=== PATIENT | male | born 1950 | race Caucasian/White ===

== ENCOUNTER 2018-07-03 02:04 | Emergency (ER) | payer MEDICARE, OTHER ==
--- NOTE | 2018-07-03 02:33 | ED ---
Male Urogenital HPI - General Chief complaint: Urogenital Stated complaint: Urine Retention Time Seen by Provider: 07/03/18 02:24 Source: patient Mode of arrival: ambulatory Limitations: no limitations - History of Present Illness Initial comments: 67-year-old male patient presents to the emergency department today for complaints of urinary retention. Patient states he has been having issues with urinary retention since having open heart surgery at the end of April. Patient states that prior to today he has had 3 indwelling Hendrickson catheters placements subsequently removed. Patient states the last one was removed on Friday and he seemed to be urinating okay since then. Patient states that he has not had a very good stream since removal. States that his urine output started to slow today and this evening developed a lot of pressure to the suprapubic region. States he is having some dysuria. He denies any hematuria. Denies any fever or chills. Patient states that Dr. Samson has told him that he has a moderately enlarged prostate. Patient denies any recent rash, shortness breath, chest pain, nausea, vomiting, diarrhea, constipation, back pain, flank pain, numbness, tingling, dizziness, weakness, headache, visual changes, or any other complaints. - Related Data Previous Rx's Medication Instructions Recorded Ciprofloxacin HCl [Cipro] 500 mg PO BID 7 Days #14 tab 07/03/18 Allergies Allergy/AdvReac Type Severity Reaction Status Date / Time Sulfa (Sulfonamide Allergy Unknown Verified 07/03/18 02:16 Antibiotics) Review of Systems ROS Statement: Those systems with pertinent positive or pertinent negative responses have been documented in the HPI. ROS Other: All systems not noted in ROS Statement are negative. Past Medical History Past Medical History: Diabetes Mellitus History of Any Multi-Drug Resistant Organisms: None Reported Past Surgical History: Cardiac Valve Replacement Additional Past Surgical History / Comment(s): Aortic root and valve replacement. Past Psychological History: No Psychological Hx Reported Smoking Status: Former smoker Past Alcohol Use History: Rare Past Drug Use History: None Reported General Exam Limitations: no limitations General appearance: alert, in no apparent distress, other (This is a well- developed, well-nourished elderly male patient in no acute distress. Vital signs upon presentation are temperature 99.2F, pulse 64, respirations 18, blood pressure 130/79, pulse ox 96% on room air.) Eye exam: Present: normal appearance, PERRL, EOMI. Absent: scleral icterus, conjunctival injection, periorbital swelling ENT exam: Present: normal exam, normal oropharynx, mucous membranes moist Respiratory exam: Present: normal lung sounds bilaterally. Absent: respiratory distress, wheezes, rales, rhonchi, stridor Cardiovascular Exam: Present: regular rate, normal rhythm, normal heart sounds. Absent: systolic murmur, diastolic murmur, rubs, gallop, clicks GI/Abdominal exam: Present: soft, tenderness (Suprapubic), normal bowel sounds. Absent: distended, guarding, rebound, rigid Neurological exam: Present: alert, oriented X3, CN II-XII intact Psychiatric exam: Present: normal affect, normal mood Skin exam: Present: warm, dry, intact, normal color. Absent: rash Course Vital Signs 07/03/18 07/03/18 02:11 03:41 Temperature 99.2 F 98.9 F Pulse Rate 64 60 Respiratory 18 16 Rate Blood Pressure 130/79 133/70 O2 Sat by Pulse 96 97 Oximetry Medical Decision Making - Medical Decision Making 67-year-old male patient presented to the emergency department today for evaluation of urinary retention and dysuria. Physical examination did reveal suprapubic discomfort upon palpation. Hendrickson catheter was inserted and patient did have output of just over 1000 mL of urine. Urinalysis was obtained and did show trace protein with 3+ glucose, moderate blood, large leukocyte esterase, 22 red blood cells, 98 white blood cells, occasional white blood cell clumps, rare bacteria, and rare mucous. Patient did have positive nitrite. Given patient's 3+ glucose in the urine did have nursing perform blood glucose reading which was 142, patient take his Lantus this evening. Did discuss findings results with the patient. He has been taking Cipro since Friday, 250 mg twice a day, he has 1 day left. Given patient's urine findings and possibility of prostatitis we will increase the Cipro to 500 mg twice a daily and given for the next 7 days. This has been cultured. We'll send him to see Dr. Samson. Return parameters discussed in detail. He verbalizes understanding and agrees with this plan. - Lab Data Lab Results 07/03/18 07/03/18 Range/Units 02:34 03:01 POC Glucose (mg/dL) 142 H (75-99) mg/dL POC Glu [employer] ID Suhail, Myla Urine Color Yellow Urine Appearance Cloudy (Clear) Urine pH 6.0 (5.0-8.0) Ur Specific [place] 1.010 (1.001-1.035) Urine Protein Trace H (Negative) Urine Glucose (UA) 3+ H (Negative) Urine Ketones Negative (Negative) Urine Blood Moderate H (Negative) Urine Nitrite Positive (Negative) Urine Bilirubin Negative (Negative) Urine Urobilinogen <2.0 (<2.0) mg/dL Ur Leukocyte Esterase Large H (Negative) Urine RBC 22 H (0-5) /hpf Urine WBC 98 H (0-5) /hpf Urine WBC Clumps Occasional H (None) /hpf Urine Bacteria Rare H (None) /hpf Urine Mucus Rare H (None) /hpf Disposition Clinical Impression: Urinary retention, Urinary tract infection Disposition: HOME SELF-CARE Condition: Good Instructions: Urinary Retention in Men (ED), Urinary Tract Infection in Men (ED ), Hendrickson Catheter Placement and Care (ED) Additional Instructions: Increase fluids. Follow-up with urologist for further evaluation since possible. Complete antibiotic prescription and full. Return here immediately for any new, worsening, or concerning symptoms. Prescriptions: Ciprofloxacin HCl [Cipro] 500 mg PO BID 7 Days #14 tab Is patient prescribed a controlled substance at d/c from ED?: No Referrals: Liz Vizcaino MD [Primary Care Provider] - 1-2 days Time of Disposition: 03:12
[2018-07-03 02:52] LABS: Appearance,Urine Cloudy (Clear); Bacteria,Urine Rare /hpf; Bilirubin,Urine Negative (Negative); Blood,Urine Moderate (Negative); Color,Urine Yellow; Glucose,Urine (UA) 3+ (Negative); Ketones,Urine Negative (Negative); Leukocyte Esterase,Urine Large (Negative); Mucus,Urine Rare /hpf; Nitrite,Urine Positive (Negative); Protein,Urine Trace (Negative); RBC,Urine 22 /hpf (0-5); Urobilinogen,Urine <2.0 mg/dL (<2.0); WBC,Urine 98 /hpf (0-5)
[2018-07-03 03:05] LABS: Glucose,Whole Blood 142 mg/dL (75-99)
[2018-07-03] MEDS ORDERED: CIPROFLOXACIN HCL 500 MG TAB PO STA (03:10)
[2018-07-03 03:42] VITALS: BP 133/70; PULSE 60; RESP 16; TEMP 98.9
== END 2018-07-03 03:42 | disposition home or self-care (01) ==
LOC: EC 02:04
DX: N39.0 Urinary tract infection, site not specified (principal); Z87.891 Personal history of nicotine dependence; Z95.2 Presence of prosthetic heart valve; Z88.2 Allergy status to sulfonamides
CPT/HCPCS: 36415; 51702; 81001; 87077; 87086; 87186; 99283

== ENCOUNTER → 2018-07-10 | Outpatient (CLI) | payer MEDICARE, OTHER ==
[2018-07-10 12:52] LABS: HCT 35.2 % (39.0-53.0); Hypochromasia Slight; MCH 32.1 pg (25.0-35.0); MCHC 34.1 g/dL (31.0-37.0); MCV 94.2 fL (80.0-100.0); Mean Platelet Volume 7.5; Platelet Count 320 k/uL (150-450); RBC 3.74 m/uL (4.30-5.90); RDW 13.7 % (11.5-15.5); WBC 7.3 k/uL (3.8-10.6)
[2018-07-10 13:20] LABS: Potassium 5.1 mmol/L (3.5-5.1)
== END ==
LOC: LABPAT 11:14
PROVIDERS: ATTEND Urology
DX: Z01.818 Encounter for other preprocedural examination (principal); I10 Essential (primary) hypertension; N40.1 Benign prostatic hyperplasia with lower urinary tract symptoms; R33.9 Retention of urine, unspecified; Z79.899 Other long term (current) drug therapy; Z01.812 Encounter for preprocedural laboratory examination
CPT/HCPCS: 80048; 85027; 93005

== ENCOUNTER 2018-07-16 07:20 | Day surgery (SDC) | payer MEDICARE, OTHER ==
[2018-07-13 10:58] VITALS: BMI 28.7
--- NOTE | 2018-07-16 06:34 | P.GSHP ---
History of Present Illness H&P Date: 07/15/18 Chief Complaint: Urinary retention The patient is a 67-year-old male with known BPH. When seen in October 2017, he reported mild obstructive voiding symptoms. His postvoid residual at that time was 80 mL. Tamsulosin was prescribed. He underwent a CABG on 05/22/2018. He developed postoperative urinary retention and has failed voiding trials. A cystometrogram showed normal bladder tone, and he was able to void following that. However, he subsequently developed recurrent urinary retention, requiring replacement of his Hendrickson catheter. Alternative treatment options were reviewed, including increased tamsulosin dosage, combination medical therapy, and TURP. He has elected to undergo the latter and comes for this reason. A recent urine culture has shown Pseudomonas aeruginosa, resistant to quinolones, and he is currently being treated with Rocephin 2 g IVPB daily. - Constitutional Constitutional: Denies chills, Denies fever Past Medical History Past Medical History: Coronary Artery Disease (CAD), Diabetes Mellitus, Hypertension, Prostate Disorder Additional Past Medical History / Comment(s): Enl. Prostate; Bladder infection History of Any Multi-Drug Resistant Organisms: None Reported Past Surgical History: Cardiac Valve Replacement Additional Past Surgical History / Comment(s): Aortic root and valve replacement. Past Anesthesia/Blood Transfusion Reactions: No Reported Reaction Smoking Status: Former smoker - Past Family History Mother Family Medical History: No Reported History Medications and Allergies Home Medications Medication Instructions Recorded Confirmed Type ALPRAZolam [Xanax] 0.25 mg PO HS PRN 07/13/18 07/13/18 History Aspirin [Adult Low Dose Aspirin EC] 81 mg PO DAILY 07/13/18 07/13/18 History Calcium Polycarbophil [Fibercon] 625 mg PO DAILY 07/13/18 07/13/18 History Cranberry Fruit Concentrate 450 mg PO DAILY 07/13/18 07/13/18 History [Cranberry] Cyanocobalamin (Vitamin B-12) 1,000 mcg PO DAILY 07/13/18 07/13/18 History [Vitamin B-12] Flaxseed Oil [[place]-3 Flaxseed Oil] 1,000 mg PO DAILY 07/13/18 07/13/18 History Metoprolol Tartrate [Lopressor] 50 mg PO BID 07/13/18 07/13/18 History Multivitamins, Thera [Multivitamin 1 tab PO DAILY 07/13/18 07/13/18 History (formulary)] Niacin 500 mg PO DAILY 07/13/18 07/13/18 History Pioglitazone [Actos] 30 mg PO DAILY 07/13/18 07/13/18 History Tamsulosin [Flomax] 0.4 mg PO DAILY 07/13/18 07/13/18 History cefTRIAXone [Rocephin] 2,000 mg IVPB Q24HR 07/13/18 07/13/18 History glipiZIDE [Glucotrol] 10 mg PO AC-BID 07/13/18 07/13/18 History metFORMIN HCL [Glucophage] 500 mg PO BID 07/13/18 07/13/18 History Allergies Allergy/AdvReac Type Severity Reaction Status Date / Time Sulfa (Sulfonamide Allergy Unknown Verified 07/13/18 10:32 Antibiotics) Surgical - Exam - General well developed, well nourished, no distress - Respiratory normal respiratory effort - Abdomen Abdomen: soft, non tender, no guarding, no rigid, no rebound - Genitourinary normal penis with no external lesions, testicles non-tender - Rectum Rectum: normal sphincter tone, no masses, other (Prostate mildly enlarged and smooth) - Psychiatric oriented to time, oriented to person, oriented to place, speech is normal, memory intact Assessment and Plan (1) Urinary retention due to benign prostatic hyperplasia Status: Acute Code(s): N40.1 - BENIGN PROSTATIC HYPERPLASIA WITH LOWER URINARY TRACT SYMP; R33.8 - OTHER RETENTION OF URINE SNOMED Code(s): 602849452 Plan: Cystoscopy, bipolar transurethral resection of prostate (TURP). The procedure has been reviewed in detail with the patient. Potential risks were also reviewed, which include anesthesia, bleeding, infection, vesical neck contracture, urethral stricture, urinary incontinence, and persistent urinary retention.
[~2018-07-16 07:20] MED LIST: DEXAMETHASONE SOD PHOSPHATE 10 MG/ML 1 ML VIAL IV ONE; LACTATED RINGERS 1,000 ML IV SCH; LIDOCAINE 1% 20 ML VIAL (10MG/ML) FOR IV START INTRADERMA PRN; MIDAZOLAM 2 MG/2 ML VIAL IV PRN; ONDANSETRON 4 MG/2 ML VIAL IVP ONE; ceFAZolin IN SWFI 2 GM/20 ML SYRINGE IVP ONE; cefTRIAXone 2,000 MG in SODIUM CHLORIDE 0.9% 100 ML IVPB ONE; fentaNYL (PF) 50 MCG/ML 2 ML AMP IV PRN
[2018-07-16 08:13] LABS: Glucose,Whole Blood 188 mg/dL (75-99)
[2018-07-16] MEDS ORDERED: LIDOCAINE 1% INJ 10MG/ML (20 ML MDV) ONE (10:01)
[2018-07-16] MEDS ORDERED: FUROSEMIDE 10 MG/ML 2 ML VIAL ONE (10:01)
[2018-07-16] MEDS ORDERED: PROPOFOL 10 MG/ML 20 ML VIAL IV ONE (10:01)
[2018-07-16] MEDS ORDERED: SUCCINYLCHOLINE CHLORIDE 100 MG/5 ML SYR IV ONE (10:01)
[2018-07-16] MEDS ORDERED: ePHEDrine SULFATE/0.9% NACL/PF 50 MG/5 ML SYRINGE IV ONE (10:01)
[2018-07-16] MEDS ORDERED: NEOSTIGMINE 1 MG/ML 10 ML VIAL ONE (10:01)
[2018-07-16] MEDS ORDERED: fentaNYL (PF) 50 MCG/ML 2 ML AMP ONE (10:01)
[2018-07-16] MEDS ORDERED: GLYCOPYRROLATE 0.2 MG/ML 2 ML VIAL ONE (10:01)
[2018-07-16] MEDS ORDERED: PHENYLEPHRINE-0.9% NACL SYG 1 MG/10 ML SYRINGE ONE (10:01)
[2018-07-16] MEDS ORDERED: ROCURONIUM BROMIDE 10 MG/ML 10 ML VIAL IV ONE (10:01)
[2018-07-16] MEDS ORDERED: MIDAZOLAM 2 MG/2 ML VIAL ONE (10:01)
--- NOTE | 2018-07-16 12:20 | P.OP ---
Date of Procedure: 07/16/18 Preoperative Diagnosis: Urinary retention secondary to BPH Postoperative Diagnosis: Same Procedure(s) Performed: Cystoscopy, bipolar transurethral resection of prostate (TURP) Anesthesia: GETA Estimated Blood Loss (ml): 100 IV fluids (ml): 900 Pathology: other (Prostate chips) Condition: stable Disposition: PACU Indications for Procedure: The patient is a 67-year-old male with known BPH. When seen in October 2017, he reported mild obstructive voiding symptoms. His postvoid residual at that time was 80 mL. Tamsulosin was prescribed. He underwent a CABG on 05/22/2018. He developed postoperative urinary retention and has failed voiding trials. A cystometrogram showed normal bladder tone, and he was able to void following that. However, he subsequently developed recurrent urinary retention, requiring replacement of his Hendrickson catheter. Alternative treatment options were reviewed, including increased tamsulosin dosage, combination medical therapy, and TURP. He has elected to undergo the latter and comes for this reason. A recent urine culture has shown Pseudomonas aeruginosa, resistant to quinolones, and he is currently being treated with Rocephin 2 g IVPB daily. Operative Findings: Trilobar BPH Description of Procedure: The patient was taken in the operating room and placed in the dorsolithotomy position. The external genitalia was prepped and draped sterilely. The 25- [place] ACMI resectoscope sheath was introduced into the bladder. The bladder was inspected. Both ureteral orifices were of normal anatomic location and configuration, and clear urine effluxed from both. No tumors or foreign bodies were seen. Examination of the prostate revealed complete obstruction with a trilobar configuration. It was noted that the prosthetic apex extended well beyond the verumontanum. Using the bipolar cutting loop, the lateral lobes were resected down to the surgical capsule. The floor of the prostate was then resected, proximal to the verumontanum. Lastly, any remaining anterior tissue was resected. The remaining apical tissue was then carefully resected, though resection of the apical tissue was incomplete due to the fact that it extended so far beyond the verumontanum and I wanted to minimize risk to the external urinary sphincter.. The resection was carried down to the surgical capsule in all 4 quadrants. The prostatic fossa was then carefully examined, and any areas of bleeding were controlled with electrocautery. Excellent hemostasis was attained. The resectoscope was withdrawn into the bulbous urethra. The external urinary sphincter remained intact. The prostatic fossa was open. The TheTake evacuator was used to remove all prostate chips from the bladder. These were saved and sent for pathologic examination. The resectoscope was removed, and an 18 [place] Hendrickson catheter was placed. The return was essentially clear. The patient tolerated the procedure well was taken to the recovery room in stable condition.
[2018-07-16 12:37] VITALS: TEMP 97
[2018-07-16] MEDS ORDERED: HYDROmorphone 1 MG/ML 1 ML SYRINGE IVP ONE ×4 (12:43→13:29)
[2018-07-16] MEDS ORDERED: INSULIN ASPART 100 UNIT/ML 1 ML 10 ML VIAL SQ ONE (13:10)
[2018-07-16 13:22] LABS: Glucose,Whole Blood 241 mg/dL (75-99)
[2018-07-16] MEDS ORDERED: ONDANSETRON 4 MG/2 ML VIAL IVP ONE (13:35)
[2018-07-16 15:58] VITALS: BP 122/70; PULSE 62; RESP 16
== END 2018-07-16 15:55 | disposition home or self-care (01) ==
LOC: OR 07:20
PROVIDERS: ATTEND Urology
DX: N40.1 Benign prostatic hyperplasia with lower urinary tract symptoms (principal); R33.8 Other retention of urine; N39.0 Urinary tract infection, site not specified; B96.5 Pseudomonas (aeruginosa) (mallei) (pseudomallei) as the cause of diseases classified elsewhere; Z16.31 Resistance to antiparasitic drug(s); I25.10 Atherosclerotic heart disease of native coronary artery without angina pectoris; E11.9 Type 2 diabetes mellitus without complications; I10 Essential (primary) hypertension; N42.9 Disorder of prostate, unspecified; F41.9 Anxiety disorder, unspecified; Z95.1 Presence of aortocoronary bypass graft; Z95.2 Presence of prosthetic heart valve; Z79.84 Long term (current) use of oral hypoglycemic drugs; Z79.82 Long term (current) use of aspirin; Z79.899 Other long term (current) drug therapy; Z88.2 Allergy status to sulfonamides; Z87.891 Personal history of nicotine dependence
CPT/HCPCS: 88305; 52601; J2250; J1100; J1940; J2710; J2405; J0696; J2001; J3010; J1170; J2370; J0330; J2704

== ENCOUNTER 2020-03-23 06:36 | Observation (INO) | payer MEDICARE, OTHER ==
[2020-03-23] MEDS ORDERED: KETOROLAC 30 MG/ML 1 ML VIAL IVP STA (07:06)
--- NOTE | 2020-03-23 07:08 | ED ---
Neck Injury/Pain HPI - General Chief Complaint: Neck Pain/Injury Stated Complaint: L arm numbness Time Seen by Provider: 03/23/20 06:57 Source: patient, family, RN notes reviewed Mode of arrival: ambulatory Limitations: no limitations - History of Present Illness Initial Comments: this is a 69-year-old male presents emergency Department with chief complaint of left sided neck, shoulder pain. Patient states that it started around 2 AM in which the pain woke him up. Patient states that he has some numbness and tingling in his left arm. He felt that it was just related to muscle injury so he took an Aleve at that time in a hot shower. Patient states that did not change and he still felt uncomfortable and became concerned. Patient states that he had open heart surgery for aortic valve replacement in 2018. Patient recent echo which showed everything functioning well. Patient states does have a history of diabetes. He denies any focal weakness denies any nausea, vomiting, chest pain or shortness of breath no current headache. - Related Data Home Medications Medication Instructions Recorded Confirmed ALPRAZolam [Xanax] 0.25 mg PO HS PRN 07/13/18 07/16/18 Aspirin [Adult Low Dose Aspirin EC] 81 mg PO DAILY 07/13/18 07/16/18 Calcium Polycarbophil [Fibercon] 625 mg PO DAILY 07/13/18 07/16/18 Cranberry Fruit Concentrate 450 mg PO DAILY 07/13/18 07/16/18 [Cranberry] Cyanocobalamin (Vitamin B-12) 1,000 mcg PO DAILY 07/13/18 07/16/18 [Vitamin B-12] Flaxseed Oil [[place]-3 Flaxseed Oil] 1,000 mg PO DAILY 07/13/18 07/16/18 Metoprolol Tartrate [Lopressor] 50 mg PO BID 07/13/18 07/16/18 Multivitamins, Thera [Multivitamin 1 tab PO DAILY 07/13/18 07/16/18 (formulary)] Niacin 500 mg PO DAILY 07/13/18 07/16/18 Pioglitazone [Actos] 30 mg PO DAILY 07/13/18 07/16/18 Tamsulosin [Flomax] 0.4 mg PO DAILY 07/13/18 07/16/18 cefTRIAXone [Rocephin] 2,000 mg IVPB Q24HR 07/13/18 07/16/18 glipiZIDE [Glucotrol] 10 mg PO AC-BID 07/13/18 07/16/18 metFORMIN HCL [Glucophage] 500 mg PO BID 07/13/18 07/16/18 Previous Rx's Medication Instructions Recorded Hydrocodone/Acetaminophen [[place] 1 - 2 each PO Q4HR PRN #6 tab 07/16/18 5-325] Allergies Allergy/AdvReac Type Severity Reaction Status Date / Time Sulfa (Sulfonamide Allergy Unknown Verified 07/16/18 07:54 Antibiotics) Review of Systems ROS Statement: Those systems with pertinent positive or pertinent negative responses have been documented in the HPI. ROS Other: All systems not noted in ROS Statement are negative. Past Medical History Past Medical History: Diabetes Mellitus History of Any Multi-Drug Resistant Organisms: None Reported Past Surgical History: Cardiac Valve Replacement Additional Past Surgical History / Comment(s): Aortic root and valve replacement 2018. urethral surgery Past Psychological History: No Psychological Hx Reported Smoking Status: Former smoker Past Alcohol Use History: None Reported, Occasional Past Drug Use History: None Reported General Exam Limitations: no limitations General appearance: alert, in no apparent distress Head exam: Present: atraumatic, normocephalic, normal inspection Eye exam: Present: normal appearance, PERRL, EOMI. Absent: scleral icterus, conjunctival injection, periorbital swelling ENT exam: Present: normal exam, normal oropharynx, mucous membranes moist, TM's normal bilaterally, normal external ear exam Neck exam: Present: normal inspection, tenderness (Mild tenderness with palpation over the left trapezius), full ROM. Absent: meningismus, lymphadenopathy Respiratory exam: Present: normal lung sounds bilaterally. Absent: respiratory distress, wheezes, rales, rhonchi, stridor Cardiovascular Exam: Present: regular rate, normal rhythm, normal heart sounds. Absent: systolic murmur, diastolic murmur, rubs, gallop, clicks GI/Abdominal exam: Present: soft, normal bowel sounds. Absent: distended, tenderness, guarding, rebound, rigid Neurological exam: Present: alert, oriented X3, CN II-XII intact, reflexes normal, other (Finger to nose intact bilaterally without over shooting). Absent: motor sensory deficit Expanded Patient oriented to: Present: person, place, time Speech: Present: fluid speech Cranial nerves: EOM's Intact: Normal, Gag Reflex: Normal, Tongue Deviation: Normal, Facial Sensation: Normal, Facial Palsy with Forehead Movement: Normal, Facial Palsy without Forehead Movement: Normal Cerebellar function: Finger to Nose: Normal, Heel to [place]: Normal Motor strength exam: RUE: 5, LUE: 5, RLE: 5, LLE: 5 Eye Response: (4) open spontaneously Motor Response: (6) obeys commands Verbal Response: (5) oriented [place] Total: 15 Skin exam: Present: warm, dry, intact, normal color. Absent: rash Course Vital Signs 03/23/20 03/23/20 06:40 07:43 Temperature 97.6 F Pulse Rate 54 L 55 L Respiratory 18 16 Rate Blood Pressure 138/78 129/78 O2 Sat by Pulse 97 95 Oximetry Medical Decision Making - Medical Decision Making 69-year-old male presented for left shoulder, left arm pain with associated paresthesias. Symptoms are not significantly reproducible at this time patient does have a history of old CVA which was noted on CT. Patient does have some degenerative changes of the cervical spine may be leading to his symptoms though they're still concern for mild CVA. Patient's NIH is low in which a code stroke was not called at this time. Patient symptoms are not progressing. Patient did take aspirin prior arrival. Patient was not given additional aspirin. Patient will be admitted to Dr. Keita with neurology evaluation. Patient's EKG does not reveal any acute findings. Patient's labs are unremarkable. - Lab Data Result diagrams: 03/23/20 07:08 03/23/20 07:08 Lab Results 03/23/20 03/23/20 03/23/20 Range/Units 07:08 07:08 07:08 WBC 6.0 (3.8-10.6) k/uL RBC 4.59 (4.30-5.90) m/uL Hgb 15.7 (13.0-17.5) gm/dL Hct 44.8 (39.0-53.0) % MCV 97.8 (80.0-100.0) fL MCH 34.2 (25.0-35.0) pg MCHC 34.9 (31.0-37.0) g/dL RDW 11.6 (11.5-15.5) % Plt Count 222 (150-450) k/uL Neutrophils % 55 % Lymphocytes % 29 % Monocytes % 8 % Eosinophils % 5 % Basophils % 1 % Neutrophils # 3.3 (1.3-7.7) k/uL Lymphocytes # 1.8 (1.0-4.8) k/uL Monocytes # 0.5 (0-1.0) k/uL Eosinophils # 0.3 (0-0.7) k/uL Basophils # 0.0 (0-0.2) k/uL Sodium 136 L (137-145) mmol/L Potassium 4.8 (3.5-5.1) mmol/L Chloride 107 (98-107) mmol/L Carbon Dioxide 20 L (22-30) mmol/L Anion Gap 9 mmol/L BUN 23 H (9-20) mg/dL Creatinine 0.94 (0.66-1.25) mg/dL Est GFR (CKD-EPI)AfAm >90 (>60 ml/min/1.73 sqM) Est GFR (CKD-EPI)NonAf 82 (>60 ml/min/1.73 sqM) Glucose 187 H (74-99) mg/dL Calcium 9.6 (8.4-10.2) mg/dL Magnesium 2.0 (1.6-2.3) mg/dL Total Bilirubin 1.3 (0.2-1.3) mg/dL AST 26 (17-59) U/L ALT 18 (4-49) U/L Alkaline Phosphatase 104 (38-126) U/L Troponin I <0.012 (0.000-0.034) ng/mL Total Protein 6.7 (6.3-8.2) g/dL Albumin 4.0 (3.5-5.0) g/dL Disposition Clinical Impression: Arm paresthesia, left, History of CVA (cerebrovascular accident), Aortic valve replaced Disposition: ADMITTED IP TO THIS HOSP Condition: Fair Referrals: Patrick Melendrez MD [Primary Care Provider] - 1-2 days
[2020-03-23 07:20] LABS: Basophils % (A) 1 %; Eosinophils # (A) 0.3 k/uL (0-0.7); Eosinophils % (A) 5 %; HCT 44.8 % (39.0-53.0); HGB 15.7 gm/dL (13.0-17.5); Lymphocytes # (A) 1.8 k/uL (1.0-4.8); Lymphocytes % (A) 29 %; MCH 34.2 pg (25.0-35.0); MCHC 34.9 g/dL (31.0-37.0); MCV 97.8 fL (80.0-100.0); Mean Platelet Volume 8.7; Monocytes # (A) 0.5 k/uL (0-1.0); Monocytes % (A) 8 %; Neutrophils # (A) 3.3 k/uL (1.3-7.7); Neutrophils % (A) 55 %; Platelet Count 222 k/uL (150-450); RBC 4.59 m/uL (4.30-5.90); RDW 11.6 % (11.5-15.5)
[2020-03-23 07:31] LABS: ALT 18 U/L (4-49); AST 26 U/L (17-59); African American GFR (CKD) >90 (>60 ml/min/1.73 sqM); Alkaline Phosphatase 104 U/L (38-126); Anion Gap 9 mmol/L; Blood Urea Nitrogen 23 mg/dL (9-20); Calcium 9.6 mg/dL (8.4-10.2); Carbon Dioxide 20 mmol/L (22-30); Chloride 107 mmol/L (98-107); Glucose 187 mg/dL (74-99); Non-African American GFR(CKD) 82 (>60 ml/min/1.73 sqM); Potassium 4.8 mmol/L (3.5-5.1); Sodium 136 mmol/L (137-145); Total Bilirubin 1.3 mg/dL (0.2-1.3); Total Protein 6.7 g/dL (6.3-8.2)
--- NOTE | 2020-03-23 07:47 | CT ---
EXAMINATION TYPE: CT brain leroy wo con DATE OF EXAM: 03/23/2020 COMPARISON: None HISTORY: 69-year-old male Left sided neck and arm numbness with headache. CT DLP: 1588.2 mGycm Automated exposure control for dose reduction was used. Technique: Examination of the head was done in axial plane without intravenous contrast. Coronal and sagittal reconstructions performed. CT of the cervical spine was obtained in axial plane without intravenous injection of contrast mater ial. Coronal and sagittal reformatted images were obtained from the axial views for evaluation of f ractures, spinal alignment and canal. FINDINGS: Head: There is no evidence of acute intracranial hemorrhage, acute ischemic changes, mass, mass-effect, or extra-axial fluid collection. There is no effacement of cerebral sulci or basal subarachnoid cister ns. There is no hydrocephalus. There is no midline shift. Long-white matter distinction is preserv ed. Small area of encephalomalacia inferior left cerebellum suggesting area of prior infarct. Moderate pa tchy white matter hypodensities postsurgical hemispheres. Benign basal ganglia calcifications on the right. Mild age-related cortical volume loss. Metastatic calcifications in the carotid siphons and al so within the proximal V4 segments of vertebral arteries on both sides. Leftward nasal septal deviation. Orbits and globes are intact. Trace mucosal thickening anterior ethm oid air cells. Mastoid air cells well pneumatized. Cervical spine: Heterogeneity of the thyroid gland with suggestion of a 1.4 cm hypodense nodule in the right lobe. Th is can be further evaluated with dedicated thyroid ultrasound. No craniocervical junction abnormality, predental space widening, or prevertebral soft tissue swellin g. Degenerative change at C1 dens articulation. Grade 1 anterolisthesis at C4-C5 and grade 1 retrolisthesis at C5-C6. No acute fracture of the cervical spine. Hypertrophic facet arthropathy particularly on the right in the mid cervical spine. Mild multilevel degenerative disc disease. There may be minimal narrowing of the spinal canal at C4-C5. Mild right neuroforaminal narrowing at C4-C5 as well. Mild on the left at C5-C6. Sagittal and coronal reformatted images confirm above findings. COMBINED IMPRESSION: 1. 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 No acute intracranial abnormality seen. 2. No acute fracture of cervical spine. Mild to moderate spondylitic changes particularly in the mid cervical spine with facet arthropathy greater towards the right. Degenerative grade 1 spondylolisthes es at C4-C5 and C5-C6. 3. Heterogeneous thyroid gland. Suggestion of an underlying 1.4 cm nodule in the right lobe. This can be further evaluated with a nonemergent follow-up thyroid ultrasound.
[2020-03-23] MEDS ORDERED: ALPRAZolam 0.25 MG TAB PO PRN (11:31)
[2020-03-23 11:46] LABS: Glucose,Whole Blood 214 mg/dL (75-99)
[2020-03-23] MEDS: POTASSIUM CHLORIDE ER 20 MEQ TAB.ER PO SCH (12:59)
[2020-03-23] MEDS: ASPIRIN 81 MG PO SCH (12:59)
[2020-03-23] MEDS: TAMSULOSIN 0.4 MG CAP.ER.24H PO SCH (12:59)
[2020-03-23] MEDS: metFORMIN 500 MG TAB PO SCH ×2 (13:00→19:56)
[2020-03-23] MEDS: ATORVASTATIN 20 MG TAB PO SCH (13:00)
[2020-03-23] MEDS: MULTIVITAMINS, THERA 1 EACH TAB PO SCH (13:00)
[2020-03-23] MEDS: CYANOCOBALAMIN 500 MCG TAB PO SCH (13:00)
[2020-03-23] MEDS: METOPROLOL TARTRATE 50 MG TAB PO SCH ×2 (13:00→20:03)
[2020-03-23] MEDS: glipiZIDE 10 MG TAB PO SCH ×2 (13:00→19:56)
[2020-03-23] MEDS: PIOGLITAZONE 30 MG TAB PO SCH (13:00)
[2020-03-23] MEDS: NIACIN TR 500 MG CAPLET PO SCH (13:01)
--- NOTE | 2020-03-23 14:22 | P.CNNES ---
History of Present Illness Consult date: 03/23/20 Requesting physician: Wilbur Woodward Reason for Consult: Left thumb paresthesia, history of CVA History of Present Illness: Patient is a 69-year-old male, who came to the ER this morning at 6:30 AM for left-sided neck and shoulder pain. He woke up at around 2 AM when he felt as if he had a pulled muscle in the neck. Patient noticed left-sided neck pain with pain, and also in the left shoulder blade and left arm. Patient also noticed some numbness and tingling in his left extensor forearm region, and in the left hand including the finger tips of all 4 fingers (not the thumb). Patient tried to move his left arm to see if it would go away but it persisted. He got concerned therefore came to the ER. Patient's vital signs on arrival was 138/78, pulse rate 54, temperature 97.6. Patient states that he was given Toradol in the ER and his symptoms have improved. 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 No acute intracranial abnormality seen. No acute fracture of cervical spine. Mild to moderate spondylitic changes particularly in the mid cervical spine with facet arthropathy greater towards the right. Degenerative grade 1 spondylolisthesis of C4 5 and C5 6. Heterogenous thyroid gland. Suggestion of underlying 1.4 cm nodule in the right lobe. This can be further verified with an nonemergent follow-up thyroid ultrasound. EKG shows sinus bradycardia otherwise normal ECG. Patient's blood test shows normal CBC, hepatic panel. Sodium 136 potassium 4.8. BUN 23, creatinine 0.94. Patient states that he had experienced similar symptoms of left-sided neck and arm pain, but would go away on exercising his left arm. However this time it persisted. Patient also states that he has been doing a lot of yard work. He trimmed a lot of shrubs, which she usually does not do, on Friday, 2 days prior to arrival. Review of Systems As per HPI. All other review of systems unremarkable. Denies any chest pain shortness of breath wheezing or cough. Denies back pain. Denies nausea vomiting diarrhea. Past Medical History Past Medical History: CVA/TIA, Diabetes Mellitus, Hyperlipidemia, Hypertension Additional Past Medical History / Comment(s): arotic valve bovine/ with root replacement History of Any Multi-Drug Resistant Organisms: None Reported Past Surgical History: Cardiac Valve Replacement Additional Past Surgical History / Comment(s): Aortic root and valve replacement 2018. urethral surgery Past Anesthesia/Blood Transfusion Reactions: No Reported Reaction Past Psychological History: No Psychological Hx Reported Smoking Status: Former smoker Past Alcohol Use History: None Reported, Occasional Past Drug Use History: None Reported Medications and Allergies Home Medications Medication Instructions Recorded Confirmed Type ALPRAZolam [Xanax] 0.25 mg PO TID PRN 07/13/18 03/23/20 History Aspirin [Adult Low Dose Aspirin EC] 81 mg PO DAILY 07/13/18 03/23/20 History Cyanocobalamin (Vitamin B-12) 1,000 mcg PO DAILY 07/13/18 03/23/20 History [Vitamin B-12] Flaxseed Oil [[place]-3 Flaxseed Oil] 1,000 mg PO DAILY 07/13/18 03/23/20 History Multivitamins, Thera [Multivitamin 1 tab PO DAILY 07/13/18 03/23/20 History (formulary)] Niacin 500 mg PO DAILY 07/13/18 03/23/20 History Pioglitazone [Actos] 30 mg PO DAILY 07/13/18 03/23/20 History Tamsulosin [Flomax] 0.4 mg PO DAILY 07/13/18 03/23/20 History glipiZIDE [Glucotrol] 10 mg PO AC-BID 07/13/18 03/23/20 History Atorvastatin [Lipitor] 20 mg PO DAILY 03/23/20 03/23/20 History Metoprolol Tartrate [Lopressor] 100 mg PO BID 03/23/20 03/23/20 History Potassium Chloride [Klor-Con 20] 20 meq PO DAILY 03/23/20 03/23/20 History metFORMIN HCL ER [Glucophage Xr] 500 mg PO BID 03/23/20 03/23/20 History Allergies Allergy/AdvReac Type Severity Reaction Status Date / Time Sulfa (Sulfonamide Allergy Unknown Verified 03/23/20 08:31 Antibiotics) Physical Examination - Vital Signs Vital Signs: Vital Signs Temp Pulse Pulse Resp BP BP Pulse Ox 03/23/20 10:44 56 L 141/75 96 03/23/20 10:21 97.6 F 59 L 16 120/77 96 03/23/20 08:27 53 L 18 136/83 97 03/23/20 07:43 55 L 16 129/78 95 03/23/20 06:40 97.6 F 54 L 18 138/78 97 Intake and Output 03/22/20 03/23/20 03/23/20 22:59 06:59 14:59 Other: Weight 99.79 kg 99.79 kg On examination patient is an elderly male, in no distress. Patient is alert and awake fully oriented. Speech and language function is normal. Attention and concentration fund of knowledge is adequate. On cranial exam showed pupils are round and reactive to light, visual snowden are full on confrontation. Extraocular muscles are intact with no nystagmus. Face is symmetric, tongue protrudes the midline. Palatal elevation and sensation normal. Hearing and shoulder shrug normal. On muscle strength testing there is no pronator drift and the strength is normal in arms and legs distally and proximally. Reflexes are 2 in the upper limbs, 3 at the knees, 2 ankles and plantars are downgoing versus withdrawal bilaterally. Sensory touch is equal. No ataxia for [id number] testing tone and bulk of muscles normal. There is no carotid bruit, S1 and S2 audible, peripheral pulses present. Chest is clear, abdomen soft nontender. Results - Laboratory Findings CBC and BMP: 03/23/20 07:08 03/23/20 07:08 Abnormal Lab Findings: Abnormal Labs 03/23/20 03/23/20 07:08 11:45 Sodium 136 L Carbon Dioxide 20 L BUN 23 H Glucose 187 H POC Glucose (mg/dL) 214 H Assessment and Plan Assessment: * 69-year-old male admitted with left-sided neck pain extending to the left shoulder blade and left arm paresthesias. Patient has performed a lot of yard work [address] of the cervical spine showed degenerative grade 1 spondylitic listhesis of C4 5 and C5 6. Suspect mild left-sided cervical radiculopathy. Plan: * Mobic 7.5 mg daily. * Flexeril 10 mg once or twice a day. May cause drowsiness. * If symptoms persist, then would recommend outpatient physical therapy. * Neurologically clear for discharge.
[2020-03-23] MEDS: MELOXICAM 7.5 MG TAB PO SCH ×2 (14:56→20:03)
[2020-03-23] MEDS: CYCLOBENZAPRINE 5 MG TAB PO SCH (15:15)
[2020-03-23 16:37] LABS: Glucose,Whole Blood 132 mg/dL (75-99)
[2020-03-23 20:02] LABS: Glucose,Whole Blood 139 mg/dL (75-99)
--- NOTE | 2020-03-23 21:08 | P.HPIM ---
History of Present Illness H&P Date: 03/23/20 Chief Complaint: Left shoulder neck pain History of presenting consultation: This is a very pleasant 69-year-old patient of Dr. Patrick Melendrez. Chronic stable medical conditions include diabetes mellitus type 2, hypertension, hyperlipidemia, aortic valve replacement with bovine valve and root replacement. Patient woke up around 2:00 this morning with pain in the left neck and left shoulder. Especially painful on movement. Did tolerate to some tingling in the left hand. Does then he decided to come in. No chest pain no palpitation or dizziness or lightheadedness. Patient had prior back problems. 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 Does smoke in the past. Family history: Reviewed, noncontributory to presentation Physical examination: VITAL SIGNS: 97.4, 58, 16, 190s to 69, 97% room air GENERAL: BMI 30.7, sitting upon a chair, not in distress. EYES: Pupils equal. Conjunctiva normal. HEENT: External appearance of nose and ears normal, oral cavity grossly normal. NECK: JVD not raised; masses not palpable. HEART: First and second heart sounds are normal; no edema. LUNGS: Respiratory rate normal; clear to auscultation. ABDOMEN: Soft, nontender, liver spleen not palpable, no masses palpable. PSYCH: Alert and oriented x3; mood and affect normal. MUSCULOSKELETAL: Tenderness of the muscles of the left supraclavicular area. No neurological findings. Evidence of OA in all the joints NEUROLOGICAL: Cranial nerves grossly intact; no facial asymmetry, power and sensation grossly intact. LYMPHATICS: No lymph nodes palpable in the axilla and neck INVESTIGATIONS, reviewed in the clinical context: White count 6 hemoglobin 13.7 potassium 4.8 creatinine 0.94 Accu-Cheks 214, 132 Troponin I negative EKG tracing personally reviewed by me-normal sinus rhythm Head cervical spine CT-spondylolisthesis stresses at C4-C5 and C5-C6 Assessment: -Patient acute onset of pain in the left neck and shoulder rather tender. Patient has tender muscles in the left shoulder area. Feedings of the classical of radiculopathy from cervical spine. Patient's presentation is not compatible with the cardiac finding. -Diabetes mellitus type 2 -Hyperlipidemia -Essential hypertension -BPH Plan: Home medications resumed. Neurology was consulted earlier. Patient be started on Mobic. Also Flexeril. We will watch overnight.. Patient will be placed under observation. Already feeling better with the NSAID. Past Medical History Past Medical History: CVA/TIA, Diabetes Mellitus, Hyperlipidemia, Hypertension Additional Past Medical History / Comment(s): arotic valve bovine/ with root replacement History of Any Multi-Drug Resistant Organisms: None Reported Past Surgical History: Cardiac Valve Replacement Additional Past Surgical History / Comment(s): Aortic root and valve replacement 2018. urethral surgery Past Anesthesia/Blood Transfusion Reactions: No Reported Reaction Past Psychological History: No Psychological Hx Reported Smoking Status: Former smoker Past Alcohol Use History: None Reported, Occasional Past Drug Use History: None Reported Medications and Allergies Home Medications Medication Instructions Recorded Confirmed Type ALPRAZolam [Xanax] 0.25 mg PO TID PRN 07/13/18 03/23/20 History Aspirin [Adult Low Dose Aspirin EC] 81 mg PO DAILY 07/13/18 03/23/20 History Cyanocobalamin (Vitamin B-12) 1,000 mcg PO DAILY 07/13/18 03/23/20 History [Vitamin B-12] Flaxseed Oil [[place]-3 Flaxseed Oil] 1,000 mg PO DAILY 07/13/18 03/23/20 History Multivitamins, Thera [Multivitamin 1 tab PO DAILY 07/13/18 03/23/20 History (formulary)] Niacin 500 mg PO DAILY 07/13/18 03/23/20 History Pioglitazone [Actos] 30 mg PO DAILY 07/13/18 03/23/20 History Tamsulosin [Flomax] 0.4 mg PO DAILY 07/13/18 03/23/20 History glipiZIDE [Glucotrol] 10 mg PO AC-BID 07/13/18 03/23/20 History Atorvastatin [Lipitor] 20 mg PO DAILY 03/23/20 03/23/20 History Metoprolol Tartrate [Lopressor] 100 mg PO BID 03/23/20 03/23/20 History Potassium Chloride [Klor-Con 20] 20 meq PO DAILY 03/23/20 03/23/20 History metFORMIN HCL ER [Glucophage Xr] 500 mg PO BID 03/23/20 03/23/20 History Allergies Allergy/AdvReac Type Severity Reaction Status Date / Time Sulfa (Sulfonamide Allergy Unknown Verified 03/23/20 08:31 Antibiotics) Physical Exam Vitals: Vital Signs Temp Pulse Pulse Resp BP BP Pulse Ox 03/23/20 16:00 58 L 16 03/23/20 15:53 97.4 F L 58 L 16 119/69 97 03/23/20 12:15 56 L 16 03/23/20 10:44 56 L 141/75 96 03/23/20 10:21 97.6 F 59 L 16 120/77 96 03/23/20 08:27 53 L 18 136/83 97 03/23/20 07:43 55 L 16 129/78 95 03/23/20 06:40 97.6 F 54 L 18 138/78 97 Intake and Output 03/23/20 03/23/20 03/23/20 06:59 14:59 22:59 Intake Total 240 600 Balance 240 600 Intake: Oral 240 600 Other: # Voids 2 Weight 99.79 kg 99.79 kg Results CBC & Chem 7: 03/23/20 07:08 03/23/20 07:08 Labs: Abnormal Lab Results - Last 24 Hours (Table) 03/23/20 03/23/20 03/23/20 Range/Units 07:08 07:08 07:08 Sodium 136 L (137-145) mmol/L Carbon Dioxide 20 L (22-30) mmol/L BUN 23 H (9-20) mg/dL Glucose 187 H (74-99) mg/dL POC Glucose (mg/dL) (75-99) mg/dL Hemoglobin A1c 8.0 H (4.0-6.0) % Vitamin B12 >2000.0 H (200.0-944.0) pg/mL 03/23/20 03/23/20 03/23/20 Range/Units 11:45 16:35 20:00 Sodium (137-145) mmol/L Carbon Dioxide (22-30) mmol/L BUN (9-20) mg/dL Glucose (74-99) mg/dL POC Glucose (mg/dL) 214 H 132 H 139 H (75-99) mg/dL Hemoglobin A1c (4.0-6.0) % Vitamin B12 (200.0-944.0) pg/mL Thrombosis Risk Factor Assmnt - Choose All That Apply Any of the Below Risk Factors Present?: No
[2020-03-23] MEDS: ENOXAPARIN 40 MG/0.4 ML SYRINGE SQ SCH (22:34)
[2020-03-24 06:21] LABS: Glucose,Whole Blood 165 mg/dL (75-99)
[2020-03-24] MEDS: glipiZIDE 10 MG TAB PO SCH (06:40)
[2020-03-24] MEDS: metFORMIN 500 MG TAB PO SCH (06:40)
[2020-03-24 08:23] LABS: Cholesterol 115 mg/dL (<200); HDL Cholesterol 41 mg/dL (40-60); LDL Cholesterol,Calculated 42 mg/dL (0-99); Triglycerides 159 mg/dL (<150)
[2020-03-24] MEDS ORDERED: ASPIRIN 325 MG TAB PO SCH (09:00)
[2020-03-24] MEDS ORDERED: FLAXSEED OIL 1000 MG PO SCH (09:00)
[2020-03-24] MEDS: CYANOCOBALAMIN 500 MCG TAB PO SCH (09:14)
[2020-03-24] MEDS: METOPROLOL TARTRATE 50 MG TAB PO SCH (09:15)
[2020-03-24] MEDS: MULTIVITAMINS, THERA 1 EACH TAB PO SCH (09:15)
[2020-03-24] MEDS: ATORVASTATIN 20 MG TAB PO SCH (09:15)
[2020-03-24] MEDS: CYCLOBENZAPRINE 5 MG TAB PO SCH (09:15)
[2020-03-24] MEDS: ENOXAPARIN 40 MG/0.4 ML SYRINGE SQ SCH (09:16)
[2020-03-24] MEDS: ASPIRIN 81 MG PO SCH (09:16)
[2020-03-24] MEDS: MELOXICAM 7.5 MG TAB PO SCH (09:16)
[2020-03-24] MEDS: TAMSULOSIN 0.4 MG CAP.ER.24H PO SCH (09:17)
[2020-03-24] MEDS: POTASSIUM CHLORIDE ER 20 MEQ TAB.ER PO SCH (09:18)
[2020-03-24] MEDS: NIACIN TR 500 MG CAPLET PO SCH (09:22)
[2020-03-24] MEDS: PIOGLITAZONE 30 MG TAB PO SCH (09:22)
[2020-03-24 09:38] VITALS: BP 130/70; PULSE 58; RESP 19; TEMP 97.9
[2020-03-24 12:44] LABS: Glucose,Whole Blood 107 mg/dL (75-99)
--- NOTE | 2020-03-24 23:18 | P.DS ---
Providers Date of admission: 03/23/20 08:17 Expected date of discharge: 03/24/20 Attending physician: Fran Keita Consults: 03/23/20 08:18 Consult Physician Urgent Consulting Provider: Shefali Hermosillo Consult Reason/Comments: Left arm paresthesias, history of CVA, Do you want consulting provider notified?: Yes Primary care physician: Patrick Melendrez MD Hospital Course: Chief Complaint: Left shoulder neck pain History of presenting consultation: This is a very pleasant 69-year-old patient of Dr. Patrick Melendrez. Chronic stable medical conditions include diabetes mellitus type 2, hypertension, hyperlipidemia, aortic valve replacement with bovine valve and root replacement. Patient woke up around 2:00 this morning with pain in the left neck and left shoulder. Especially painful on movement. Did tolerate to some tingling in the left hand. Does then he decided to come in. No chest pain no palpitation or dizziness or lightheadedness. Patient had prior back problems. No fever no chills. Computed tomography scan of the spine did show evidence of spondylolisthesis at C4-C5 C6 C6. 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 Put on naproxen. Responded well. Seen by neurology. Today-care was discussed with patient and at length. At the bedside. Questions were answered. He will follow with Dr. Cook as an outpatient. Discussion and discharge planning more than 35 minutes Consultation: Dr. Khoury from neurology Physical examination: VITAL SIGNS: 97.9, 58, 19, 130/70, 96% room air GENERAL: BMI 30.7, sitting upon a chair, not in distress. EYES: Pupils equal. Conjunctiva normal. HEENT: External appearance of nose and ears normal, oral cavity grossly normal. NECK: JVD not raised; masses not palpable. HEART: First and second heart sounds are normal; no edema. LUNGS: Respiratory rate normal; clear to auscultation. ABDOMEN: Soft, nontender, liver spleen not palpable, no masses palpable. PSYCH: Alert and oriented x3; mood and affect normal. MUSCULOSKELETAL: Tenderness of the muscles of the left supraclavicular area. No neurological findings. Evidence of OA in all the joints INVESTIGATIONS, reviewed in the clinical context: White count 6 hemoglobin 13.7 potassium 4.8 creatinine 0.94 Accu-Cheks 214, 132 Troponin I negative EKG tracing personally reviewed by me-normal sinus rhythm Head cervical spine CT-spondylolisthesis stresses at C4-C5 and C5-C6 Assessment: -Acute C4-C5, C5-C6 spondylolisthesis with acute radiculopathy -Diabetes mellitus type 2 -Hyperlipidemia -Essential hypertension -BPH Disposition: Home Patient Condition at Discharge: Stable Plan - Discharge Summary Discharge Rx Participant: Yes New Discharge Prescriptions: New Cyclobenzaprine [Flexeril] 5 mg PO TID #30 tab Naproxen 250 mg PO TID #15 tablet Continue Multivitamins, Thera [Multivitamin (formulary)] 1 tab PO DAILY Tamsulosin [Flomax] 0.4 mg PO DAILY Pioglitazone [Actos] 30 mg PO DAILY ALPRAZolam [Xanax] 0.25 mg PO TID PRN PRN Reason: Anxiety glipiZIDE [Glucotrol] 10 mg PO AC-BID Niacin 500 mg PO DAILY Flaxseed Oil [[place]-3 Flaxseed Oil] 1,000 mg PO DAILY Cyanocobalamin (Vitamin B-12) [Vitamin B-12] 1,000 mcg PO DAILY Aspirin [Adult Low Dose Aspirin EC] 81 mg PO DAILY Potassium Chloride [Klor-Con 20] 20 meq PO DAILY Atorvastatin [Lipitor] 20 mg PO DAILY metFORMIN HCL ER [Glucophage Xr] 500 mg PO BID Metoprolol Tartrate [Lopressor] 100 mg PO BID Discharge Medication List ALPRAZolam [Xanax] 0.25 mg PO TID PRN 07/13/18 [History] Aspirin [Adult Low Dose Aspirin EC] 81 mg PO DAILY 07/13/18 [History] Cyanocobalamin (Vitamin B-12) [Vitamin B-12] 1,000 mcg PO DAILY 07/13/18 [History] Flaxseed Oil [[place]-3 Flaxseed Oil] 1,000 mg PO DAILY 07/13/18 [History] Multivitamins, Thera [Multivitamin (formulary)] 1 tab PO DAILY 07/13/18 [History] Niacin 500 mg PO DAILY 07/13/18 [History] Pioglitazone [Actos] 30 mg PO DAILY 07/13/18 [History] Tamsulosin [Flomax] 0.4 mg PO DAILY 07/13/18 [History] glipiZIDE [Glucotrol] 10 mg PO AC-BID 07/13/18 [History] Atorvastatin [Lipitor] 20 mg PO DAILY 03/23/20 [History] Metoprolol Tartrate [Lopressor] 100 mg PO BID 03/23/20 [History] Potassium Chloride [Klor-Con 20] 20 meq PO DAILY 03/23/20 [History] metFORMIN HCL ER [Glucophage Xr] 500 mg PO BID 03/23/20 [History] Cyclobenzaprine [Flexeril] 5 mg PO TID #30 tab 03/24/20 [Rx] Naproxen 250 mg PO TID #15 tablet 03/24/20 [Rx] Follow up Appointment(s)/Referral(s): Patrick Melendrez MD [Primary Care Provider] - 1-2 days (Please call for follow up appointment; the office is currently closed) Flakito Cook DO [Doctor of Osteopathic Medicine] - 1 Week (Please call the office to make a follow up appointment; office was closed at time of discharge) Patient Instructions/Handouts: Cervical Radiculopathy (GEN), Stroke (GEN) Discharge Disposition: HOME SELF-CARE
== END 2020-03-24 12:55 | disposition home or self-care (01) ==
LOC: EC 06:36 → 3SCARD 08:17 → INTOOBSV 08:17
PROVIDERS: ADMIT Hospitalist; ATTEND Hospitalist
DX: M43.12 Spondylolisthesis, cervical region (principal); M47.22 Other spondylosis with radiculopathy, cervical region; I10 Essential (primary) hypertension; E78.5 Hyperlipidemia, unspecified; E11.9 Type 2 diabetes mellitus without complications; N40.0 Benign prostatic hyperplasia without lower urinary tract symptoms; Z79.82 Long term (current) use of aspirin; Z79.84 Long term (current) use of oral hypoglycemic drugs; Z79.899 Other long term (current) drug therapy; Z88.2 Allergy status to sulfonamides; Z86.73 Personal history of transient ischemic attack (TIA), and cerebral infarction without residual deficits; Z87.891 Personal history of nicotine dependence; Z95.3 Presence of xenogenic heart valve; Z03.818 Encounter for observation for suspected exposure to other biological agents ruled out
CPT/HCPCS: 96372; 96374; 99284; 36415; 93005; 97161; 97165; 80061; 80053; 82607; 82746; 83735; 84484; 85025; 83036; 72125; 70450; G0378 ×2; U0003; J1650; J1885

== ENCOUNTER → 2020-05-09 | Outpatient (CLI) | payer MEDICARE, OTHER ==
--- NOTE | 2020-05-09 11:05 | XR ---
EXAMINATION TYPE: XR chest 2V DATE OF EXAM: 05/09/2020 COMPARISON: NONE HISTORY: History of open heart surgery 2018, pre-MRI study. TECHNIQUE: Frontal and lateral views of the chest are obtained. FINDINGS: There are overlying sternal wires and metallic aortic valve. There is some chronic parenchy mal change without suspicious focal air space opacity, pleural effusion, or pneumothorax seen. The c ardiac silhouette size is within normal limits. The osseous structures are intact. There are epicar dial pacer wires noted on lateral view. IMPRESSION: No acute cardiopulmonary process. Epicardial pacer wires and metallic aortic valve noted .
== END | disposition home or self-care (01) ==
LOC: RADXRMAIN 10:40
PROVIDERS: ATTEND Orthopaedic Surgery Orthopaedic Surgery of the Spine
DX: M54.2 Cervicalgia (principal)
CPT/HCPCS: 71046

== ENCOUNTER → 2020-06-28 | Outpatient (CLI) | payer MEDICARE, OTHER | END | disposition home or self-care (01) | LOC: RADMRIMAIN 16:43 | PROVIDERS: ATTEND Orthopaedic Surgery Orthopaedic Surgery of the Spine | DX: Z53.9 Procedure and treatment not carried out, unspecified reason (principal) ==

== ENCOUNTER 2020-09-07 07:54 | Day surgery (SDC) | payer MEDICARE, OTHER ==
[~2020-09-07 07:54] MED LIST changes: -DEXAMETHASONE SOD PHOSPHATE 10 MG/ML 1 ML VIAL IV ONE; -LACTATED RINGERS 1,000 ML IV SCH; -LIDOCAINE 1% 20 ML VIAL (10MG/ML) FOR IV START INTRADERMA PRN; -MIDAZOLAM 2 MG/2 ML VIAL IV PRN; -ONDANSETRON 4 MG/2 ML VIAL IVP ONE; +PREMYELOGRAM MEDICATION REVIEW 1 EACH MISC PO NR; -ceFAZolin IN SWFI 2 GM/20 ML SYRINGE IVP ONE; -cefTRIAXone 2,000 MG in SODIUM CHLORIDE 0.9% 100 ML IVPB ONE; -fentaNYL (PF) 50 MCG/ML 2 ML AMP IV PRN
[2020-09-07] MEDS ORDERED: diazePAM 5 MG TAB PO STA (08:57)
[2020-09-07 09:33] VITALS: RESP 18; TEMP 97.6
[2020-09-07 11:04] VITALS: BP 129/74; PULSE 80
--- NOTE | 2020-09-07 11:06 | FL ---
Lumbar puncture and Myelogram. INDICATION: Pain FINDINGS: Fluoroscopy time: 1 minute 8 seconds. Images obtained: 5. The procedure was explained to the patient. Risks complications and benefits were discussed. Alternat keyonna were discussed. All questions were answered. Informed consent was obtained. A timeout was performed. The L3-4 and L4-5 levels were chosen for access. Maximum barrier sterile technique was utilized. The skin was cleansed with Betadine and the patient sterilely prepped and draped in the usual manner. The skin and deeper tissue was anesthetized with 1% Lidocaine. Utilizing a 22-gauge spinal needle attemp trae access was performed. No passage into the spinal canal could be performed. Consensus review is pe rformed. Unable to access lumbar spine, procedure was terminated. Fluoroscopic spot images were obtained. The patient tolerated the procedure well. Discharge instructions were discussed with the patient. Th e patient was transferred to [facility] for monitoring before release. Findings: Lumbar arthritis preventing lumbar puncture. IMPRESSIONS: 1. Unsuccessful Lumbar Puncture.
== END 2020-09-07 10:50 | disposition home or self-care (01) ==
LOC: RADPROMAIN 07:54
PROVIDERS: ATTEND Family Medicine
DX: M47.896 Other spondylosis, lumbar region (principal); Z53.8 Procedure and treatment not carried out for other reasons; M54.12 Radiculopathy, cervical region
CPT/HCPCS: 62302

== ENCOUNTER 2023-01-21 07:07 | Day surgery (SDC) | payer MEDICARE, OTHER ==
[2023-01-17 10:00] VITALS: BMI 31.5
[~2023-01-21 07:07] MED LIST changes: +LACTATED RINGERS 1,000 ML IV SCH; -PREMYELOGRAM MEDICATION REVIEW 1 EACH MISC PO NR
[2023-01-21 07:38] VITALS: TEMP 97.5
[2023-01-21 07:54] LABS: Glucose,Whole Blood 168 mg/dL (70-110)
[2023-01-21] MEDS ORDERED: PROPOFOL 10 MG/ML 20 ML VIAL IV ONE (08:03)
--- NOTE | 2023-01-21 08:31 | P.PCN ---
Date of Procedure: 01/21/23 Procedure(s) Performed: BRIEF HISTORY: Patient is a 72-year-old pleasant white male scheduled for an elective colonoscopy as a part of evaluation of lower abdominal pain and change in bowel habits for the last 1 year duration. PROCEDURE PERFORMED: Colonoscopy with snare polypectomy. PREOPERATIVE DIAGNOSIS: Change in bowel habits and lower abdominal pain. IV sedation per Anesthesia. PROCEDURE: After informed consent was obtained, the patient, was brought into the endoscopy unit. IV sedation was administered by Anesthesia under continuous monitoring. Digital rectal examination was normal. Initially the Olympus CF-160 flexible video colonoscope was then inserted in the rectum, gradually advanced into the cecum without any difficulty. Careful examination was performed as the scope was gradually being withdrawn. Ileocecal valve and the appendiceal orifice were visualized and appeared normal. Prep was excellent. Mucosa of the cecum, normal. Ascending colon there was a 7 mm polyp removed by snare polypectomy.Rest of the ascending colon, transverse colon, descending colon, appeared normal. In the sigmoid there was a 5 mm and 6 mm polyps were by snare polypectomy. Moderate sigmoid diverticulosis seen. Rest of the sigmoid colon, and rectum appeared normal. Retroflexion was performed in the rectum and no lesions were seen. The patient tolerated the procedure well. IMPRESSION: 7 mm broad-based ascending colon polyp status post polypectomy 5 mm and 6 mm sigmoid colon status post polypectomy Scattered sigmoid diverticulosis RECOMMENDATIONS: Findings of this examination were discussed with the patient as well as a family. She was advised to follow with the biopsy results. If the biopsy reveals adenoma he can have a repeat colonoscopy in 3 years.
[2023-01-21 08:57] VITALS: BP 120/60; PULSE 68; RESP 18
== END 2023-01-21 09:31 | disposition home or self-care (01) ==
LOC: ORWHC2ENDO 07:07
PROVIDERS: ATTEND Internal Medicine Gastroenterology
DX: D12.2 Benign neoplasm of ascending colon (principal); D12.5 Benign neoplasm of sigmoid colon; K57.30 Diverticulosis of large intestine without perforation or abscess without bleeding; I10 Essential (primary) hypertension; E78.5 Hyperlipidemia, unspecified; E11.9 Type 2 diabetes mellitus without complications; Z95.2 Presence of prosthetic heart valve; Z86.73 Personal history of transient ischemic attack (TIA), and cerebral infarction without residual deficits; Z79.899 Other long term (current) drug therapy; Z79.84 Long term (current) use of oral hypoglycemic drugs; Z79.82 Long term (current) use of aspirin; Z88.2 Allergy status to sulfonamides
CPT/HCPCS: 88305; 45385; J2704